=== PATIENT | female | born 1970 | race Caucasian/White ===

== ENCOUNTER 2017-05-11 17:02 | Emergency (ER) | payer SELFPAY ==
[2017-05-11] MEDS ORDERED: Ibuprofen TAB* 600 MG PO ONE (17:17)
[2017-05-11] MEDS ORDERED: Carisoprodol TAB* 350 MG PO ONE (17:33)
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
[2017-05-11 18:46] VITALS: BP 122/82
== END 2017-05-11 18:46 | disposition home or self-care (01) ==
LOC: ED 17:02
DX: S09.90XA Unspecified injury of head, initial encounter (principal); M54.2 Cervicalgia; M51.35 Other intervertebral disc degeneration, thoracolumbar region; V49.9XXA Car occupant (driver) (passenger) injured in unspecified traffic accident, initial encounter; Y93.9 Activity, unspecified; Y92.9 Unspecified place or not applicable
CPT/HCPCS: 70450; 72125; 99282; A9270-GY

== ENCOUNTER 2017-12-23 09:47 | Emergency (ER) | payer BC, OTHER ==
--- NOTE | 2017-12-23 10:27 | ED ---
Throat Pain/Nasal Congestion - HPI Summary HPI Summary: This is scribe Henrique Peraltain documenting for attending Dr. Julio Borges MD. A 47 y/o female presents to ED c/o foreign body substance stuck in her throat. Currently the patient is not in any pain distress, however, she noted that when she drinks seltzer water she feels pain temporarily reaching 3/10 in severity. She can swallow (drink water), however, believes she feels a foreign substance in her esophagus. According to the patient, she inhaled chicken enchilada last night. Due to not chewing the substance, a piece of the substance became stuck in her esophagus. She noted that the pain is apparent when she is drinking water as she has to push the water to go down. The patient emphasized that she can swallow and the pain is not constant ("hurts really bad when I drink"). The pain subsides when the water goes down. She took Tums earlier, as she initially thought it was ingestion, but it did not alleviate the pain. It was noted that both her parents and brother had similar issues. The patient would like to go to [facility] for an endoscopy, if needed. In the ED room, she was able to drink water without choking, however, has some dysphasia now. - History of Current Complaint Chief Complaint: EDForeignBodyEsophag Time Seen by Provider: 12/23/17 10:17 Hx Obtained From: Patient Onset/Duration: Sudden Onset, Still Present - Thinks a foreign substance is in esophagus. Cough: None - Allergies/Home Medications Allergies/Adverse Reactions: Allergies Allergy/AdvReac Type Severity Reaction Status Date / Time No Known Allergies Allergy Verified 12/23/17 09:51 Home Medications: Home Medications Singulair 10 MG TAB* 10 mg PO DAILY 12/23/17 [History Confirmed 12/23/17] PMH/Surg Hx/FS Hx/Imm Hx Endocrine/Hematology History: Denies: Hx Diabetes Cardiovascular History: Denies: Hx Hypertension, Hx Pacemaker/ICD, Other Cardiovascular Problems/ Disorders Respiratory History: Reports: Hx Asthma Denies: Other Respiratory Problems/Disorders GI History: Denies: Other GI Disorders History: Reports: Hx Kidney Stones - STILL HAS STONE 2 YRS Denies: Hx Renal Disease, Other Problems/Disorders Musculoskeletal History: Reports: Other Musculoskeletal History - ? HERNITATED DISCS Sensory History: Reports: Hx Cataracts, Hx Contacts or Glasses - WILL WEAR GLASSES DAY OF SURGERY Denies: Hx Hearing Aid Opthamlomology History: Reports: Hx Cataracts, Hx Contacts or Glasses - WILL WEAR GLASSES DAY OF SURGERY Neurological History: Denies: Other Neuro Impairments/Disorders Psychiatric History: Reports: Hx Anxiety - ON MEDS Denies: Hx Panic Disorder - Cancer History Cancer Type, Location and Year: BREAST Hx Chemotherapy: Yes Hx Radiation Therapy: No - Surgical History Surgery Procedure, Year, and Place: GABRIELLA MASTECTOMY- 04/2008, [facility]. TUBAL LIGATION 2011, [facility] [place]. BREAST REPLACE IMPLANTS 08/2012. 09/2013 FAT TRANSFER [facility] [place] Hx Anesthesia Reactions: No Infectious Disease History: No Infectious Disease History: Denies: Traveled Outside the [place] in Last 30 Days - Family History Known Family History: Positive: Cardiac Disease - maternal grandparents, Hypertension - mother, Diabetes - father, Other - Breast cancer (maternal aunts) - Social History Alcohol Use: Weekly Alcohol Amount: 2-3 DRINKS/WEEK Substance Use Type: Reports: None Smoking Status (MU): Never Smoked Tobacco Have You Smoked in the Last Year: No Review of Systems Negative: Fever Positive: Other - POSITIVE: Pain in esophagus upon swallowing. All Other Systems Reviewed And Are Negative: Yes Physical Exam - Summary Physical Exam Summary: VITAL SIGNS: Reviewed. GENERAL: Patient is a well-developed and nourished female who is lying comfortable in the stretcher. Patient is not in any acute respiratory distress. HEAD AND FACE: No signs of trauma. No ecchymosis, hematomas or skull depressions. No sinus tenderness. EYES: PERRLA, EOMI x 2, no nystagmus. EARS: Hearing grossly intact. Ear canals and tympanic membranes are within normal limits. MOUTH: Oropharynx within normal limits. NECK: Supple, trachea is midline, no adenopathy, no JVD, no carotid bruit, no c- spine tenderness, neck with full ROM. CHEST: Symmetric, no tenderness at palpation LUNGS: Clear to auscultation bilaterally. No wheezing or crackles. CVS: Regular rate and rhythm, S1 and S2 present, no murmurs or gallops appreciated. ABDOMEN: Soft, non-tender. No signs of distention. No rebound no guarding, and no masses palpated. Bowel sounds are normal. EXTREMITIES: FROM in all major joints, no edema, no cyanosis or clubbing. NEURO: Alert and oriented x 3. No acute neurological deficits. Speech is normal and follows commands. SKIN: Dry and warm Triage Information Reviewed: Yes Vital Signs On Initial Exam: Initial Vitals Temp Pulse Resp BP Pulse Ox 97.4 F 67 16 137/81 100 12/23/17 09:48 12/23/17 09:48 12/23/17 09:48 12/23/17 09:48 12/23/17 09:48 Vital Signs Reviewed: Yes Diagnostics - Vital Signs Vital Signs Temp Pulse Resp BP Pulse Ox 12/23/17 09:48 97.4 F 67 16 137/81 100 - Laboratory Lab Statement: Any lab studies that have been ordered have been reviewed, and results considered in the medical decision making process. Re-Evaluation - Re-Evaluation First Eval Re-Evaluation Time: 10:50 Comment: Patient is feeling much better. No more throat pain. EENT Course/Dx - Course Assessment/Plan: She took some Zantac and the symptoms do not improve. This morning when she woke up she developed this painful swallowing but she was able to bring liquids down. However every time that she drinks something she develops the pain. The patient is not drooling, she is not vomiting, she is able to drink liquids down history. In the ER course the patient was given water and she was able to drink with no difficulty however she developed dysphasia. Therefore the patient was given viscous lidocaine and his symptoms significantly improved. She reports that the pain has significantly decreased. Therefore believe that the patient doesnt have any significant obstruction or foreign body at this point however appropriate she has a lot of irritation therefore she had to dysphasia. I offered the patient to be transferred to [facility] for GI consult however the patient is. Better and she prefers the referral to a GI doctor for Monday. The patient is comfortable, she is not really she is able to drink fluids therefore the patient will be discharged home with follow-up with GI. Patient is hemodynamically stable and she is alert and oriented 3. She was given instructions if she develops any other worsening symptoms she should return immediately to the emergency department for further workup and management. The patient understands and agrees. - Diagnoses Provider Diagnoses: Dysphasia Discharge - Sign-Out/Discharge Documenting (check all that apply): Patient Departure - DISCHARGE - Discharge Plan Condition: Stable Disposition: HOME Prescriptions: Lidocaine 2% VISCOUS* [Xylocaine 2% Viscous*] 5 ml SWISH SPIT Q4H PRN #2 btl PRN Reason: Pain Patient Education Materials: Foreign Body in Pharynx (ED) Referrals: Alexandra Flynn MD [Primary Care Provider] - 1 Week Keegan Smiley MD [Medical Doctor] - 3 Days Additional Instructions: FOLLOW UP WITH YOUR PRIMARY CARE PROVIDER WITHIN ONE WEEK FOR HIGH BLOOD PRESSURE NOTED TODAY. RETURN TO THE ED FOR ANY WORSENING OR NEW SYMPTOMS.
[2017-12-23] MEDS ORDERED: Al Hydrox/Mg Hydrox/Simet LIQ* 30 ML UDC PO ONE (10:29)
[2017-12-23] MEDS ORDERED: Lidocaine 2% VISCOUS* 15 ML UDC PO ONE (10:29)
[2017-12-23 11:21] VITALS: BP 131/92
== END 2017-12-23 11:20 | disposition home or self-care (01) ==
LOC: ED 09:47
DX: R47.02 Dysphasia (principal); F41.9 Anxiety disorder, unspecified; Z85.3 Personal history of malignant neoplasm of breast
CPT/HCPCS: 99283; A9270-GY

== ENCOUNTER 2018-08-21 10:38 | Emergency (ER) | payer BC ==
--- NOTE | 2018-08-21 11:02 | ED ---
Abdominal Pain/Female - HPI Summary HPI Summary: This pt is a 47 y/o female presenting to [facility] c/o left sided abd pain x1 week. Pt reports for the last 3 days her abd pain has been worsening. She states that this morning she had streaks of blood in her stool. Pt also note having nausea and one episode of diarrhea. Denies fever, vomiting, vaginal bleeding. She has chronic constipation. FHx of mother and aunt with diverticulitis PMHx includes breast CA (10 years ago), asthma, and kidney stone on the left. - History of Current Complaint Chief Complaint: EDAbdPain Stated Complaint: ABD PAIN/BLOOD IN STOOL PER PT Time Seen by Provider: 08/21/18 10:54 Hx Obtained From: Patient Onset/Duration: Lasting Days, Still Present, Worse Since - 3 days ago Timing: Hours Severity Currently: Moderate Pain Intensity: 4 Pain Scale Used: 0-10 Numeric Location: Other - left sided abd Radiates: No Aggravating Factor(s): Food Alleviating Factor(s): Nothing Associated Signs and Symptoms: Positive: Constipation - chronic, Blood in Stool , Nausea, Diarrhea - one episode. Negative: Fever, Vaginal Bleeding, Vomiting Allergies/Adverse Reactions: Allergies Allergy/AdvReac Type Severity Reaction Status Date / Time No Known Allergies Allergy Verified 08/21/18 10:46 Home Medications: Home Medications Albuterol Sulfate [Proventil Hfa] 6.7 gm INH DAILY 08/21/18 [History Confirmed 08/21/18] Aspirin TAB* [Aspirin 325 MG TAB*] 325 mg PO EVERY OTHER DAY 08/21/18 [History Confirmed 08/21/18] LORazepam TAB(*) [Ativan 0.5 MG TAB (*)] 0.5 mg PO DAILY PRN 08/21/18 [History Confirmed 08/21/18] PMH/Surg Hx/FS Hx/Imm Hx Endocrine/Hematology History: Denies: Hx Diabetes Cardiovascular History: Denies: Hx Hypertension, Hx Pacemaker/ICD, Other Cardiovascular Problems/ Disorders Respiratory History: Reports: Hx Asthma Denies: Other Respiratory Problems/Disorders GI History: Denies: Other GI Disorders History: Reports: Hx Kidney Stones - STILL HAS STONE 2 YRS Denies: Hx Renal Disease, Other Problems/Disorders Musculoskeletal History: Reports: Other Musculoskeletal History - ? HERNITATED DISCS Sensory History: Reports: Hx Cataracts, Hx Contacts or Glasses - WILL WEAR GLASSES DAY OF SURGERY Denies: Hx Hearing Aid Opthamlomology History: Reports: Hx Cataracts, Hx Contacts or Glasses - WILL WEAR GLASSES DAY OF SURGERY Neurological History: Denies: Other Neuro Impairments/Disorders Psychiatric History: Reports: Hx Anxiety - ON MEDS Denies: Hx Panic Disorder - Cancer History Cancer Type, Location and Year: BREAST Hx Chemotherapy: Yes Hx Radiation Therapy: No - Surgical History Surgery Procedure, Year, and Place: GABRIELLA MASTECTOMY- 04/2008, [facility]. TUBAL LIGATION 2011, [facility] [place]. BREAST IMPLANTS 08/2012- [facility]. 09/2013 FAT TRANSFER [facility] [place] Hx Anesthesia Reactions: No Infectious Disease History: No Infectious Disease History: Denies: Traveled Outside the [place] in Last 30 Days - Family History Known Family History: Positive: Cardiac Disease - maternal grandparents, Hypertension - mother, Diabetes - father, Other - Breast cancer (maternal aunts) - Social History Alcohol Use: Weekly Alcohol Amount: 2-3 DRINKS/WEEK Substance Use Type: Reports: None Smoking Status (MU): Never Smoked Tobacco Have You Smoked in the Last Year: No Review of Systems Negative: Fever Gastrointestinal: Other - POS: blood in stool, chronic constipation Positive: Abdominal Pain, Diarrhea - one episode, Nausea. Negative: Vomiting Negative: other - NEG: vaginal bleeding All Other Systems Reviewed And Are Negative: Yes Physical Exam - Summary Physical Exam Summary: Appearance: Well appearing, no pain distress Skin: warm, dry, reflects adequate perfusion Head/face: normal Eyes: EOMI, JOSE ENT: normal Neck: supple, non-tender Respiratory: CTA, breath sounds present Cardiovascular: RRR, pulses symmetrical Abdomen: tender in the LLQ, soft Musculoskeletal: normal, strength/ROM intact Neuro: normal, sensory motor intact, A&Ox3 Triage Information Reviewed: Yes Vital Signs On Initial Exam: Initial Vitals Temp Pulse Resp BP Pulse Ox 98.7 F 107 20 151/112 100 08/21/18 10:43 08/21/18 10:43 08/21/18 10:43 08/21/18 10:43 08/21/18 10:43 Vital Signs Reviewed: Yes Diagnostics - Vital Signs Vital Signs Temp Pulse Resp BP Pulse Ox 08/21/18 10:43 98.7 F 107 20 151/112 100 - Laboratory Result Diagrams: 08/21/18 11:23 08/21/18 11:23 Lab Statement: Any lab studies that have been ordered have been reviewed, and results considered in the medical decision making process. - CT Abdomen/Pelvis CT CT Interpretation Completed By: Radiologist Summary of CT Findings: IMPRESSION: #. Short segment circumferential mural thickening of the proximal sigmoid colon. Given absence of a specific inflamed diverticula the appearance is concerning for potential focal colitis or colonic neoplasm. Correlate with clinical assessment and consider colonoscopy for further evaluation. #. Negative for lymphadenopathy. Dr. Fabian has reviewed this report. Re-Evaluation - Re-Evaluation First Eval Re-Evaluation Time: 14:38 Comment: I updated the pt and reviewed the lab and CT results with pt. We are waiting for GI to call back. Abdominal Pain Fem Course/Dx - Course Course Of Treatment: Pt is a 47 y/o female who presents with left sided abd pain x1 week, worsening over the last 3 days. Associated symptoms of nausea, one episode of diarrhea, and this morning she had streaks of blood in her stool. Blood work, urinalysis, CT were obtained. Abd/Pel CT shows #. Short segment circumferential mural thickening of the proximal sigmoid colon. Given absence of a specific inflamed diverticula the appearance is concerning for potential focal colitis or colonic neoplasm. Correlate with clinical assessment and consider colonoscopy for further evaluation. #. Negative for lymphadenopathy. In the ED course the pt declines any pain medications. Discussed with DRE Perales, who reports he cannot do the scope tomorrow. Dr. Smiley recommends discharging pt with antibiotics and follow up with Dr. Bhatti tomorrow. Pt will be discharged home with follow up from Dr. Bhatti. Pt given Rx Ciprofloxacin and Flagyl. She was instructed to return to the ED for any new or worsening symptoms. Discussed case with Dr. Flynn, pt's PCP, and she agrees with plan. Dx: colitis, rule out malignancy. - Diagnoses Differential Diagnosis: Positive: Constipation, Diverticulitis, Ovarian Cyst, Pancreatitis, Urinary Tract Infection Provider Diagnoses: Colitis - Provider Notifications Discussed Care Of Patient With: Keegan Smiley - GI Time Discussed With Above Provider: 15:19 Instructed by Provider To: Other - Discussed with DRE Perales, who reports he cannot do scope tomorrow. Dr. Smiley recommends discharge pt with antibiotics and follow up with Dr. Bhatti tomorrow. [15:54] Discussed with Dr. Flynn, PCP, and she agrees with plan. Discharge - Sign-Out/Discharge Documenting (check all that apply): Patient Departure - Discharge home Patient Received Moderate/Deep Sedation with Procedure: No - Discharge Plan Condition: Stable Disposition: HOME Prescriptions: Ciprofloxacin TAB* [Cipro 500 MG TAB*] 500 mg PO BID #20 tab metroNIDAZOLE [Flagyl 500 MG TAB] 500 mg PO TID #30 tab Patient Education Materials: Colitis (ED) Referrals: Alexandra Flynn MD [Primary Care Provider] - Ramone Bhatti MD [Medical Doctor] - Additional Instructions: Please follow up with Dr. Bhatti, tax manager. RETURN TO THE ED FOR ANY WORSENING OR NEW SYMPTOMS. - Billing Disposition and Condition Condition: STABLE Disposition: Home - Attestation Statements Document Initiated by Caren: Yes Documenting Scribe: Aliya Bailey Provider For Whom Caren is Documenting (Include Credential): Bandar Fabian MD Scribe Attestation: Aliya Escobar, scribed for Bandar Fabian MD on 08/21/18 at 1605. Scribe Documentation Reviewed: Yes Provider Attestation: The documentation as recorded by the Aliya ybarra accurately reflects the service I personally performed and the decisions made by Bandar gutierrez MD Status of Scribe Document: Viewed
[2018-08-21] MEDS ORDERED: NS 0.9% 1000 ML** 1,000 ML IV ONE (11:11)
[2018-08-21 11:41] LABS: Urine Appearance Clear; Urine Bacteria Absent (Absent); Urine Bilirubin Negative (Negative); Urine Blood 1+ (Negative); Urine Color Straw; Urine Glucose Negative (Negative); Urine Ketones Negative (Negative); Urine Nitrite Negative (Negative); Urine Protein Negative (Negative); Urine Red Blood Cell Trace(0-2/hpf) (Absent); Urine Specific Gravity 1.005 (1.010-1.030); Urine Urobilinogen Negative (Negative); Urine White Blood Cell Absent (Absent)
[2018-08-21 11:42] LABS: Activated Partial Thrombo Time 30.1 seconds (26.0-36.3); INR 1.02 (0.77-1.02)
[2018-08-21 11:52] LABS: Albumin 4.2 g/dL (3.2-5.2); Albumin/Globulin Ratio 1.5 (1-3); BUN/Creatinine Ratio 13.6 (8-20); C Reactive Protein 48.45 mg/L (<8.01); Calcium 9.4 mg/dL (8.6-10.3); EGFR African American 92.5 (>60); EGFR Non-African American 76.5 (>60); Globulin 2.8 g/dL (2-4); Potassium 3.6 mmol/L (3.5-5.0); Total Bilirubin 0.5 mg/dL (0.2-1.0)
[2018-08-21 11:57] LABS: HCG Pregnancy 1.08 mIU/mL
[2018-08-21 12:11] LABS: ABS Basophils 0 10^3/ul (0-0.2); ABS Eosinophils 0 10^3/ul (0-0.6); ABS Lymphocytes 1.2 10^3/ul (1.0-4.8); ABS Monocytes 0.6 10^3/ul (0-0.8); ABS Neutrophils 7.5 10^3/ul (1.5-7.7); ABS Nucleated RBC 0 10^3/ul; Eosinophil % 0.3 %; Hematocrit 38 % (33-41); Hemoglobin 13.1 g/dL (12.0-16.0); Lymphocyte % 12.6 %; Mean Corpuscular HGB Conc 34 g/dL (31-36); Mean Corpuscular Hemoglobin 31 pg (27-31); Mean Corpuscular Volume 90 fL (80-97); Mean Platelet Volume 8.7 fL (7.4-10.4); Nucleated Red Blood Cells % 0; Platelet Count 264 10^3/uL (150-450); Red Blood Count 4.28 10^6 /uL (3.70-4.87); Red Cell Distribution Width 14 % (10.5-15); White Blood Count 9.3 10^3/uL (3.5-10.8)
[2018-08-21] MEDS ORDERED: Iohexol 300* (CONTRAST) 10 ML SDV IV ONE (12:59)
[2018-08-21] MEDS ORDERED: Ciprofloxacin TAB* 500 MG PO ONE (15:24)
[2018-08-21] MEDS ORDERED: metroNIDAZOLE TAB* 250 MG PO ONE (15:24)
[2018-08-21 16:11] VITALS: BP 122/96
== END 2018-08-21 16:09 | disposition home or self-care (01) ==
LOC: ED 10:38
DX: K52.9 Noninfective gastroenteritis and colitis, unspecified (principal); K59.00 Constipation, unspecified; K92.1 Melena; J45.909 Unspecified asthma, uncomplicated; Z87.442 Personal history of urinary calculi; F41.9 Anxiety disorder, unspecified; Z85.3 Personal history of malignant neoplasm of breast
CPT/HCPCS: 36415; 74177; 80053; 81003; 81015; 83690; 84702; 85025; 85610; 85730; 86140; 96360; 99283; A9270-GY; Q9967

== ENCOUNTER 2020-01-22 11:53 | Observation (INO) ==
[2020-01-22] MEDS ORDERED: NS 0.9% 1000 ml BAG 1,000 ML IV ONE ×2 (12:41→15:10)
[2020-01-22] MEDS ORDERED: Ondansetron 4 mg VIAL 2 MG/ML 2 ml VIAL IV ONE (12:49)
[2020-01-22] MEDS ORDERED: Morphine 4 MG/ML VIAL (1 ml) IV ONE (12:49)
[2020-01-22 13:22] LABS: ABS Basophils 0.1 10^3/ul (0-0.2); ABS Eosinophils 0.1 10^3/ul (0-0.6); ABS Lymphocytes 1.1 10^3/ul (1.0-4.8); ABS Monocytes 0.9 10^3/ul (0-0.8); ABS Neutrophils 12.7 10^3/ul (1.5-7.7); Eosinophil % 0.6 %; Hematocrit 39 % (35-47); Hemoglobin 13.5 g/dL (12.0-16.0); Lymphocyte % 7.4 %; Mean Corpuscular HGB Conc 34 g/dL (31-36); Mean Corpuscular Hemoglobin 31 pg (27-31); Mean Corpuscular Volume 91 fL (80-97); Mean Platelet Volume 8.2 fL (7.4-10.4); Platelet Count 310 10^3/uL (150-450); Red Blood Count 4.33 10^6 /uL (3.70-4.87); Red Cell Distribution Width 13 % (10-15); White Blood Count 14.8 10^3/uL (3.5-10.8)
[2020-01-22 13:39] LABS: ALT 17 U/L (7-52); AST 16 U/L (13-39); Albumin 4.5 g/dL (3.2-5.2); Albumin/Globulin Ratio 1.4 (1-3); Alkaline Phosphatase 41 U/L (34-104); Anion Gap 8 mmol/L (2-11); BUN/Creatinine Ratio 10.6 (8-20); Blood Urea Nitrogen 9 mg/dL (6-24); C Reactive Protein 80.48 mg/L (<8.01); CO2 Carbon Dioxide 27 mmol/L (22-32); Calcium 9.9 mg/dL (8.6-10.3); Chloride 102 mmol/L (101-111); EGFR African American 86.7 (>60); EGFR Non-African American 71.7 (>60); Globulin 3.3 g/dL (2-4); Glucose 89 mg/dL (70-100); Potassium 3.9 mmol/L (3.5-5.0); Sodium 137 mmol/L (135-145); Total Protein 7.8 g/dL (6.4-8.9)
[2020-01-22] MEDS ORDERED: Iohexol 300 (CONTRAST) 10 ML SDV IV ONE (13:43)
[2020-01-22 13:45] LABS: HCG Pregnancy < 0.60 mIU/mL
[2020-01-22 14:36] LABS: Erythrocyte Sed Rate 48 mm/Hr (0-19)
[2020-01-22] MEDS ORDERED: Piperacillin/Tazobac ADVAN 3.375 GM in NS 0.9% 100 ml BAG 100 ML IVPB ONE ×2 (15:10→23:30)
[2020-01-22] MEDS ORDERED: Fluticasone NASAL SPRAY 50MCG 16 gm SPRAY BTL BOTH NARES PRN (17:09)
[2020-01-22] MEDS ORDERED: Ondansetron 4 mg VIAL 2 MG/ML 2 ml VIAL IV PRN (17:18)
[2020-01-22] MEDS ORDERED: Morphine 2 MG/ML SYRINGE IV PRN (17:24)
[2020-01-22] MEDS ORDERED: Albuterol HFA INHALER 8 gm MDI INH PRN (17:48)
[2020-01-22] MEDS ORDERED: Mometasone 220 MCG MDI INH SCH (18:00)
[2020-01-22] MEDS ORDERED: Zosyn per Pharmacy NOTE FOLLOW UP SCH (18:00)
[2020-01-22] MEDS ORDERED: Morphine 4 MG/ML VIAL (1 ml) IV SCH (18:00)
[2020-01-22] MEDS: ZOSYN 3.375 GM Q8H per EXTENDED INFUSION IV SCH (19:41)
[2020-01-22] MEDS: Senna TAB 8.6 mg TAB PO PRN (20:39)
[2020-01-22] MEDS: oxyCODONE/Acetamin 5/325 mg TAB PO PRN (20:39)
[2020-01-23] MEDS: ZOSYN 3.375 GM Q8H per EXTENDED INFUSION IV SCH ×3 (03:39→20:12)
[2020-01-23 06:22] LABS: ABS Basophils 0.1 10^3/ul (0-0.2); ABS Eosinophils 0.2 10^3/ul (0-0.6); ABS Monocytes 0.4 10^3/ul (0-0.8); Eosinophil % 2.4 %; Hematocrit 31 % (35-47); Hemoglobin 10.8 g/dL (12.0-16.0); Lymphocyte % 13.4 %; Mean Corpuscular HGB Conc 35 g/dL (31-36); Mean Corpuscular Hemoglobin 32 pg (27-31); Mean Corpuscular Volume 91 fL (80-97); Mean Platelet Volume 8.2 fL (7.4-10.4); Platelet Count 212 10^3/uL (150-450); Red Blood Count 3.36 10^6 /uL (3.70-4.87); Red Cell Distribution Width 14 % (10-15); White Blood Count 7.7 10^3/uL (3.5-10.8)
[2020-01-23 06:34] LABS: BUN/Creatinine Ratio 12.9 (8-20); Calcium 8.4 mg/dL (8.6-10.3); EGFR African American 86.7 (>60); EGFR Non-African American 71.7 (>60); Potassium 3.9 mmol/L (3.5-5.0)
[2020-01-23] MEDS: oxyCODONE/Acetamin 5/325 mg TAB PO PRN (10:51)
[2020-01-23] MEDS: Senna TAB 8.6 mg TAB PO PRN (15:23)
[2020-01-23] MEDS ORDERED: Mometasone 220 MCG MDI INH SCH (21:00)
[2020-01-24] MEDS: ZOSYN 3.375 GM Q8H per EXTENDED INFUSION IV SCH (03:27)
[2020-01-24 06:43] LABS: ABS Basophils 0.1 10^3/ul (0-0.2); ABS Eosinophils 0.2 10^3/ul (0-0.6); ABS Lymphocytes 1.1 10^3/ul (1.0-4.8); ABS Monocytes 0.4 10^3/ul (0-0.8); ABS Neutrophils 3.9 10^3/ul (1.5-7.7); Eosinophil % 3.8 %; Hematocrit 31 % (35-47); Hemoglobin 11.2 g/dL (12.0-16.0); Lymphocyte % 19.2 %; Mean Corpuscular HGB Conc 36 g/dL (31-36); Mean Corpuscular Hemoglobin 32 pg (27-31); Mean Corpuscular Volume 90 fL (80-97); Mean Platelet Volume 8.2 fL (7.4-10.4); Nucleated Red Blood Cells % 0.1; Platelet Count 235 10^3/uL (150-450); Red Blood Count 3.48 10^6 /uL (3.70-4.87); Red Cell Distribution Width 14 % (10-15); White Blood Count 5.7 10^3/uL (3.5-10.8)
[2020-01-24 07:03] LABS: BUN/Creatinine Ratio 6.5 (8-20); Calcium 8.7 mg/dL (8.6-10.3); EGFR African American 79.2 (>60); EGFR Non-African American 65.4 (>60); Potassium 3.8 mmol/L (3.5-5.0)
[2020-01-24 07:44] VITALS: BP 107/61
== END 2020-01-24 09:15 | disposition home or self-care (01) ==
LOC: MED 11:53 → ED 11:53 → MED 18:22
PROVIDERS: ADMIT Internal Medicine; ATTEND Internal Medicine

== ENCOUNTER 2023-05-12 16:38 | Inpatient (IN) ==
[2023-05-12] MEDS ORDERED: Ondansetron 4 mg VIAL 2 MG/ML 2 ml VIAL IV ONE (17:28)
[2023-05-12] MEDS ORDERED: NS 0.9% 1000 ml BAG 1,000 ML IV ONE (17:28)
[2023-05-12] MEDS ORDERED: Piperacillin/Tazobac 3.375 BAG 3.375 GM/100 ML BAG IV ONE (17:29)
[2023-05-12] MEDS ORDERED: Iohexol 350 (CONTRAST) 500 ML MDV IV ONE (17:39)
[2023-05-12] MEDS ORDERED: Lactated Ringers 1000 ml BAG 1,000 ML IV ONE (17:58)
[2023-05-12 18:05] LABS: Hematocrit 40.9 % (35-45); Hemoglobin 13.5 g/dL (11.5-14.3); Mean Corpuscular Hemoglobin 30.5 pg (27-33); Mean Corpuscular Volume 92.3 fL (80-97); Mean Platelet Volume 8.3 fL (7.5-11.2); Platelet Count 320 10^3/uL (150-450); Red Blood Count 4.43 10^6/uL (3.63-4.92); Red Cell Distribution Width 13.6 % (12-17); White Blood Count 21.3 10^3/uL (3.8-11.8)
[2023-05-12 18:25] LABS: ALT 17 U/L (7-52); AST 18 U/L (13-39); Albumin 4.2 g/dL (3.2-5.2); Albumin/Globulin Ratio 1.1 (1-3); Alkaline Phosphatase 64 U/L (35-149); Anion Gap 8 mmol/L (2-16); Blood Urea Nitrogen 10 mg/dL (6-24); CO2 Carbon Dioxide 27 mmol/L (22-32); Calcium 9.8 mg/dL (8.6-10.3); Chloride 98 mmol/L (101-111); Globulin 3.7 g/dL (2-4); Glucose 98 mg/dL (70-100); Lipase < 10 U/L (11.0-82.0); Magnesium 1.8 mg/dL (1.9-2.7); Phosphorus 2.4 mg/dL (2.5-5.0); Potassium 3.6 mmol/L (3.5-5.0); Sodium 133 mmol/L (135-145); Total Bilirubin 0.5 mg/dL (0.2-1.0); Total Protein 7.9 g/dL (6.4-8.9); eGFR CKD-EPI 89.7 (>60)
[2023-05-12 18:37] LABS: ABS Basophils 0.1 10^3/uL (0.0-0.1); ABS Eosinophils 0.1 10^3/uL (0.0-0.5); ABS Lymphocytes 0.6 10^3/uL (1.0-4.8); ABS Monocytes 0.5 10^3/uL (0.0-0.9); ABS Neutrophils 20.1 10^3/uL (1.5-7.6); ABS Nucleated RBC 0.01 10^3/ul; Eosinophil % 0.3 %; Lymphocyte % 2.7 %
[2023-05-12] MEDS ORDERED: Enoxaparin 40 MG/0.4 ML SYR SUBCUT SCH (20:00)
[2023-05-12] MEDS: NS 0.9% 1000 ml BAG 1,000 ML IV SCH (20:55)
[2023-05-12] MEDS ORDERED: metroNIDAZOLE IV 500 MG/100ML 500 MG/100 ML BAG IVPB SCH (22:00)
[2023-05-12] MEDS ORDERED: Cefepime 1 GM in Dextrose 1 GM/50 ML BAG IV SCH (23:00)
[2023-05-12] MEDS ORDERED: oxyCODONE/Acetamin 5/325 mg TAB PO PRN (23:32)
[2023-05-13] MEDS: Ondansetron 4 mg VIAL 2 MG/ML 2 ml VIAL IV PRN ×3 (02:08→17:51)
[2023-05-13] MEDS: oxyCODONE/Acetamin 5/325 mg TAB PO PRN ×3 (03:08→17:51)
[2023-05-13] MEDS: fentaNYL 100 mcg/2 ml 50 MCG/ML VIAL IV SLOW PU PRN ×6 (03:16→20:10)
[2023-05-13] MEDS: NS 0.9% 1000 ml BAG 1,000 ML IV SCH ×2 (06:05→21:23)
[2023-05-13 06:06] LABS: ABS Eosinophils 0.1 10^3/uL (0.0-0.5); ABS Lymphocytes 0.6 10^3/uL (1.0-4.8); ABS Monocytes 0.5 10^3/uL (0.0-0.9); ABS Neutrophils 12.6 10^3/uL (1.5-7.6); Eosinophil % 0.7 %; Hematocrit 30.7 % (35-45); Hemoglobin 10.4 g/dL (11.5-14.3); Lymphocyte % 4.5 %; Mean Corpuscular Hemoglobin 31.2 pg (27-33); Mean Corpuscular Volume 91.6 fL (80-97); Mean Platelet Volume 8.2 fL (7.5-11.2); Platelet Count 265 10^3/uL (150-450); Red Blood Count 3.35 10^6/uL (3.63-4.92); Red Cell Distribution Width 13.2 % (12-17); White Blood Count 13.8 10^3/uL (3.8-11.8)
[2023-05-13] MEDS: metroNIDAZOLE IV 500 MG/100ML 500 MG/100 ML BAG IVPB SCH ×3 (06:12→21:22)
[2023-05-13 06:28] LABS: Activated Partial Thrombo Time 32.9 seconds (26.0-38.0); Calcium 8.1 mg/dL (8.6-10.3); Creatinine, Serum 0.73 mg/dL (0.51-0.95); INR 1.24 (0.83-1.13); Magnesium 1.7 mg/dL (1.9-2.7); Phosphorus 2.9 mg/dL (2.5-5.0); Potassium 3.4 mmol/L (3.5-5.0); eGFR CKD-EPI 100.1 (>60)
[2023-05-13] MEDS ORDERED: Magnesium Sulfate 2 gm BAG 2 GM/50 ML BAG IVPB ONE (07:11)
[2023-05-13] MEDS ORDERED: KCL 20 MEQ/100 ML IVPREMIX 20 MEQ/100 ML BAG IV ONE (07:58)
[2023-05-13] MEDS ORDERED: CALCIUM GLUCONATE 1GM/50ML NS 1 GM/50 ML BAG IV ONE (08:26)
[2023-05-13] MEDS ORDERED: Albuterol HFA INHALER 8 gm MDI INH PRN (12:10)
[2023-05-13] MEDS: Cefepime 1 GM in Dextrose 1 GM/50 ML BAG IV SCH ×2 (12:34→23:04)
[2023-05-13] MEDS: Fluticasone NASAL SPRAY 50MCG 16 gm SPRAY BTL INTRANASAL SCH ×2 (13:42→23:31)
[2023-05-13] MEDS: HYDROmorphone 1 MG/1 ML SYRINGE IV PRN ×2 (13:56→21:19)
[2023-05-13] MEDS ORDERED: Mometasone 220 MCG MDI INH SCH (21:00)
[2023-05-13] MEDS: Heparin 5000 UNITS/ML 1 mL VIAL SUBCUT SCH (21:22)
[2023-05-14] MEDS: fentaNYL 100 mcg/2 ml 50 MCG/ML VIAL IV SLOW PU PRN ×5 (00:01→14:26)
[2023-05-14] MEDS: oxyCODONE/Acetamin 5/325 mg TAB PO PRN ×4 (00:01→21:06)
[2023-05-14] MEDS: Ondansetron 4 mg VIAL 2 MG/ML 2 ml VIAL IV PRN ×2 (00:02→06:20)
[2023-05-14] MEDS: metroNIDAZOLE IV 500 MG/100ML 500 MG/100 ML BAG IVPB SCH ×3 (05:19→21:08)
[2023-05-14] MEDS: HYDROmorphone 1 MG/1 ML SYRINGE IV PRN ×2 (07:25→12:30)
[2023-05-14 07:51] LABS: ABS Eosinophils 0.3 10^3/uL (0.0-0.5); ABS Lymphocytes 0.6 10^3/uL (1.0-4.8); ABS Monocytes 0.5 10^3/uL (0.0-0.9); Eosinophil % 2.8 %; Hematocrit 33.8 % (35-45); Hemoglobin 11.3 g/dL (11.5-14.3); Lymphocyte % 6.4 %; Mean Corpuscular Hemoglobin 31.1 pg (27-33); Mean Corpuscular Hgb Conc 33.4 g/dL (31-36); Mean Corpuscular Volume 92.8 fL (80-97); Platelet Count 292 10^3/uL (150-450); Red Blood Count 3.64 10^6/uL (3.63-4.92); Red Cell Distribution Width 13.5 % (12-17); White Blood Count 9.3 10^3/uL (3.8-11.8)
[2023-05-14] MEDS: Mometasone 220 MCG MDI INH SCH (08:08)
[2023-05-14 08:47] LABS: Albumin 3.1 g/dL (3.2-5.2); Albumin/Globulin Ratio 1.2 (1-3); Calcium 8.3 mg/dL (8.6-10.3); Creatinine, Serum 0.65 mg/dL (0.51-0.95); Globulin 2.5 g/dL (2-4); Magnesium 1.7 mg/dL (1.9-2.7); Phosphorus 2.8 mg/dL (2.5-5.0); Potassium 3.6 mmol/L (3.5-5.0); Total Bilirubin 0.3 mg/dL (0.2-1.0); Total Protein 5.6 g/dL (6.4-8.9); eGFR CKD-EPI 107.2 (>60)
[2023-05-14] MEDS: NS 0.9% 1000 ml BAG 1,000 ML IV SCH (08:52)
[2023-05-14] MEDS: Heparin 5000 UNITS/ML 1 mL VIAL SUBCUT SCH ×2 (09:13→21:08)
[2023-05-14] MEDS: Fluticasone NASAL SPRAY 50MCG 16 gm SPRAY BTL INTRANASAL SCH ×2 (09:13→21:06)
[2023-05-14] MEDS: Cefepime 1 GM in Dextrose 1 GM/50 ML BAG IV SCH ×2 (10:46→22:20)
[2023-05-14] MEDS ORDERED: CMCS: Ketorolac 10 mg TAB (NF) PO ONE (13:00)
[2023-05-14] MEDS ORDERED: Magnesium Sulfate 2 gm BAG 2 GM/50 ML BAG IVPB ONE (15:45)
[2023-05-15] MEDS: oxyCODONE/Acetamin 5/325 mg TAB PO PRN ×5 (02:12→22:41)
[2023-05-15] MEDS: Ondansetron 4 mg VIAL 2 MG/ML 2 ml VIAL IV PRN ×4 (02:16→20:08)
[2023-05-15] MEDS: metroNIDAZOLE IV 500 MG/100ML 500 MG/100 ML BAG IVPB SCH ×3 (05:28→22:42)
[2023-05-15] MEDS: HYDROmorphone 1 MG/1 ML SYRINGE IV PRN ×3 (05:41→20:21)
[2023-05-15 06:10] LABS: ABS Eosinophils 0.2 10^3/uL (0.0-0.5); ABS Lymphocytes 0.6 10^3/uL (1.0-4.8); ABS Monocytes 0.5 10^3/uL (0.0-0.9); ABS Neutrophils 5.3 10^3/uL (1.5-7.6); Eosinophil % 3.3 %; Hematocrit 30.7 % (35-45); Hemoglobin 10.7 g/dL (11.5-14.3); Lymphocyte % 8.6 %; Mean Corpuscular Hemoglobin 31.4 pg (27-33); Mean Corpuscular Hgb Conc 34.8 g/dL (31-36); Mean Corpuscular Volume 90.5 fL (80-97); Mean Platelet Volume 7.2 fL (7.5-11.2); Platelet Count 307 10^3/uL (150-450); Red Blood Count 3.39 10^6/uL (3.63-4.92); Red Cell Distribution Width 13.6 % (12-17); White Blood Count 6.6 10^3/uL (3.8-11.8)
[2023-05-15 06:26] LABS: Calcium 8.2 mg/dL (8.6-10.3); Creatinine, Serum 0.66 mg/dL (0.51-0.95); Potassium 3.7 mmol/L (3.5-5.0); eGFR CKD-EPI 106.8 (>60)
[2023-05-15] MEDS: Mometasone 220 MCG MDI INH SCH (07:49)
[2023-05-15] MEDS: Heparin 5000 UNITS/ML 1 mL VIAL SUBCUT SCH ×2 (07:54→20:09)
[2023-05-15] MEDS: Fluticasone NASAL SPRAY 50MCG 16 gm SPRAY BTL INTRANASAL SCH ×2 (09:47→20:10)
[2023-05-15] MEDS: Cefepime 1 GM in Dextrose 1 GM/50 ML BAG IV SCH (11:22)
[2023-05-16] MEDS: Cefepime 1 GM in Dextrose 1 GM/50 ML BAG IV SCH ×3 (00:03→22:04)
[2023-05-16] MEDS: Ondansetron 4 mg VIAL 2 MG/ML 2 ml VIAL IV PRN ×5 (00:11→20:57)
[2023-05-16] MEDS: HYDROmorphone 1 MG/1 ML SYRINGE IV PRN (00:30)
[2023-05-16] MEDS: oxyCODONE/Acetamin 5/325 mg TAB PO PRN ×2 (04:30→08:57)
[2023-05-16] MEDS: metroNIDAZOLE IV 500 MG/100ML 500 MG/100 ML BAG IVPB SCH ×3 (05:40→20:58)
[2023-05-16 06:14] LABS: ABS Eosinophils 0.2 10^3/uL (0.0-0.5); ABS Lymphocytes 0.8 10^3/uL (1.0-4.8); ABS Monocytes 0.5 10^3/uL (0.0-0.9); ABS Neutrophils 4.1 10^3/uL (1.5-7.6); Hematocrit 29.4 % (35-45); Hemoglobin 10.2 g/dL (11.5-14.3); Mean Corpuscular Hemoglobin 31.2 pg (27-33); Mean Corpuscular Hgb Conc 34.7 g/dL (31-36); Mean Corpuscular Volume 89.8 fL (80-97); Mean Platelet Volume 7.2 fL (7.5-11.2); Platelet Count 314 10^3/uL (150-450); Red Blood Count 3.27 10^6/uL (3.63-4.92); Red Cell Distribution Width 13.5 % (12-17); White Blood Count 5.7 10^3/uL (3.8-11.8)
[2023-05-16 06:38] LABS: Potassium 3.5 mmol/L (3.5-5.0)
[2023-05-16 06:39] LABS: Calcium 8.1 mg/dL (8.6-10.3); Creatinine, Serum 0.55 mg/dL (0.51-0.95); eGFR CKD-EPI 111.6 (>60)
[2023-05-16] MEDS: Mometasone 220 MCG MDI INH SCH (07:46)
[2023-05-16] MEDS ORDERED: HYDROmorphone 1 MG/1 ML SYRINGE IV SLOW PU PRN (08:13)
[2023-05-16] MEDS: Heparin 5000 UNITS/ML 1 mL VIAL SUBCUT SCH ×2 (08:58→21:02)
[2023-05-16] MEDS: Fluticasone NASAL SPRAY 50MCG 16 gm SPRAY BTL INTRANASAL SCH ×2 (08:59→21:06)
[2023-05-16] MEDS ORDERED: oxyCODONE/Acetamin 5/325 mg TAB PO PRN (10:38)
[2023-05-16] MEDS ORDERED: HYDROmorphone 0.5 MG/0.5 ML SYRINGE IV SLOW PU PRN (10:38)
[2023-05-16] MEDS: Lactated Ringers 1000 ml BAG 1,000 ML IV SCH ×2 (11:14→22:50)
[2023-05-17] MEDS: metroNIDAZOLE IV 500 MG/100ML 500 MG/100 ML BAG IVPB SCH ×3 (05:57→20:53)
[2023-05-17 07:50] LABS: ABS Eosinophils 0.3 10^3/uL (0.0-0.5); ABS Lymphocytes 1.2 10^3/uL (1.0-4.8); ABS Monocytes 0.4 10^3/uL (0.0-0.9); ABS Nucleated RBC 0.01 10^3/ul; Eosinophil % 4.3 %; Hematocrit 30.9 % (35-45); Hemoglobin 10.6 g/dL (11.5-14.3); Lymphocyte % 17.4 %; Mean Corpuscular Hemoglobin 31.3 pg (27-33); Mean Corpuscular Hgb Conc 34.4 g/dL (31-36); Mean Platelet Volume 7.5 fL (7.5-11.2); Nucleated Red Blood Cells % 0.1 %/100WBC (0.0-0.8); Platelet Count 343 10^3/uL (150-450); Red Cell Distribution Width 13.6 % (12-17)
[2023-05-17 08:16] LABS: Calcium 8.4 mg/dL (8.6-10.3); Creatinine, Serum 0.69 mg/dL (0.51-0.95); Potassium 3.7 mmol/L (3.5-5.0); eGFR CKD-EPI 105.7 (>60)
[2023-05-17] MEDS: Heparin 5000 UNITS/ML 1 mL VIAL SUBCUT SCH ×2 (08:39→20:53)
[2023-05-17] MEDS: Fluticasone NASAL SPRAY 50MCG 16 gm SPRAY BTL INTRANASAL SCH ×2 (08:39→20:54)
[2023-05-17] MEDS: Mometasone 220 MCG MDI INH SCH (08:49)
[2023-05-17] MEDS ORDERED: Glycerin ADULT 2.4 gm SUPP PR ONE (10:13)
[2023-05-17] MEDS: Cefepime 1 GM in Dextrose 1 GM/50 ML BAG IV SCH ×2 (11:11→23:31)
[2023-05-18] MEDS: metroNIDAZOLE IV 500 MG/100ML 500 MG/100 ML BAG IVPB SCH (05:23)
[2023-05-18] MEDS: Mometasone 220 MCG MDI INH SCH (07:30)
[2023-05-18] MEDS: Heparin 5000 UNITS/ML 1 mL VIAL SUBCUT SCH (08:24)
[2023-05-18 11:02] VITALS: BP 143/93
== END 2023-05-18 13:27 | disposition home or self-care (01) | DRG 244 ==
LOC: EDHOLD 16:38 → ED 16:38 → SUATTDRO 18:57 → MED 05-13 01:10 → SUATTDRO 05-14 11:59
PROVIDERS: ADMIT Internal Medicine; ATTEND Hospitalist

== ENCOUNTER 2023-10-02 07:30 | Inpatient (IN) ==
[~2023-10-02 07:30] MED LIST: Ertapenem 1 GM in NS 0.9% 50 ML BAG IVPB SCH
[2023-10-02] MEDS ORDERED: Naloxone 0.4 mg VIAL 0.4 mg/ml 1 ml VIAL IV PRN ×2 (08:51)
[2023-10-02] MEDS ORDERED: fentaNYL 250 mcg/5 ml 50 MCG/ML 5 ml VIAL (250 MCG) ONE (10:21)
[2023-10-02] MEDS ORDERED: Dexamethasone IV 4 MG/ML VIAL 1 ml VIAL ONE (10:21)
[2023-10-02] MEDS ORDERED: Midazolam 2 mg/2 ml VIAL 1 mg/ml 2 ml VIAL (2 mg) ONE (10:21)
[2023-10-02] MEDS ORDERED: Rocuronium 50 mg VIAL 10 mg/ml 5 ml VIAL (50 mg) ONE ×2 (10:21→12:58)
[2023-10-02] MEDS ORDERED: Propofol 10 MG/ML 20 ML BTL ONE (10:21)
[2023-10-02] MEDS ORDERED: Succinylcholine 200 mg VIAL 20 mg/ml 10 ml VIAL (200 mg) ONE (10:21)
[2023-10-02] MEDS ORDERED: Lidocaine 2% PF 5 ML VIAL ONE (10:21)
[2023-10-02] MEDS ORDERED: Ondansetron 4 mg VIAL 2 MG/ML 2 ml VIAL ONE ×2 (10:21→16:45)
[2023-10-02] MEDS: Buffered Lidocaine 1% SYRIN 1 ml INTRADERM ONE (10:38)
[2023-10-02] MEDS ORDERED: Famotidine IV 10 MG/ML 2 ml VIAL (20 mg) ONE (10:47)
[2023-10-02] MEDS ORDERED: Heparin 5000 UNITS/ML 1 mL VIAL ONE (10:47)
[2023-10-02] MEDS ORDERED: Scopolamine 1 mg/72hr PATCH ONE (10:47)
[2023-10-02] MEDS: Lactated Ringers 1000 ml BAG 1,000 ML IV SCH ×2 (11:15→18:26)
[2023-10-02] MEDS: Scopolamine 1 mg/72hr PATCH TRANSDERM ONE (11:17)
[2023-10-02 11:27] LABS: Rapid COVID-19 Molecular Undetected (Undetected)
[2023-10-02] MEDS ORDERED: Bupivacaine 0.25% EPI 200,000 30 ML SDV ONE (11:53)
[2023-10-02] MEDS ORDERED: Sevoflurane BOTTLE ONE ×2 (13:53→13:54)
[2023-10-02] MEDS ORDERED: Albuterol/Ipratropium NEB.SOL (2.5/0.5 MG) 3 ML NEB.SOLN INH PRN (16:35)
[2023-10-02] MEDS ORDERED: fentaNYL 100 mcg/2 ml 50 MCG/ML VIAL ONE (16:38)
[2023-10-02] MEDS ORDERED: Metoclopramide 5 MG/ML VIAL (10 mg) ONE (16:45)
[2023-10-02] MEDS: fentaNYL 100 mcg/2 ml 50 MCG/ML VIAL IV PRN (16:45)
[2023-10-02] MEDS: Ondansetron 4 mg VIAL 2 MG/ML 2 ml VIAL IV PRN (16:46)
[2023-10-02] MEDS: Metoclopramide 5 MG/ML VIAL (10 mg) IV PRN (17:05)
[2023-10-03 06:32] LABS: ABS Lymphocytes 1.7 10^3/uL (1.0-4.8); ABS Neutrophils 9.6 10^3/uL (1.5-7.6); Eosinophil % 0.1 %; Hematocrit 34.7 % (35-45); Hemoglobin 11.9 g/dL (11.5-14.3); Lymphocyte % 13.5 %; Mean Corpuscular Hemoglobin 30.8 pg (27-33); Mean Corpuscular Hgb Conc 34.5 g/dL (31-36); Mean Corpuscular Volume 89.3 fL (80-97); Platelet Count 245 10^3/uL (150-450); Red Blood Count 3.88 10^6/uL (3.63-4.92); Red Cell Distribution Width 13.5 % (12-17); White Blood Count 12.2 10^3/uL (3.8-11.8)
[2023-10-03 06:50] LABS: Calcium 8.4 mg/dL (8.6-10.3); Creatinine, Serum 0.8 mg/dL (0.51-0.95); Potassium 4.2 mmol/L (3.5-5.0); eGFR CKD-EPI 89.2 (>60)
[2023-10-03] MEDS: Enoxaparin 40 MG/0.4 ML SYR SUBCUT SCH (10:35)
[2023-10-03] MEDS: HYDROmorphone 0.5 MG/0.5 ML SYRINGE IV SLOW PU PRN (18:37)
[2023-10-03] MEDS: Ondansetron 4 mg VIAL 2 MG/ML 2 ml VIAL IV PRN (18:39)
[2023-10-04] MEDS: Lactated Ringers 1000 ml BAG 1,000 ML IV ONE (09:24)
[2023-10-04 09:28] LABS: ABS Eosinophils 0.1 10^3/uL (0.0-0.5); ABS Lymphocytes 0.7 10^3/uL (1.0-4.8); ABS Monocytes 0.7 10^3/uL (0.0-0.9); ABS Neutrophils 17.1 10^3/uL (1.5-7.6); Eosinophil % 0.7 %; Hematocrit 38.3 % (35-45); Hemoglobin 13.1 g/dL (11.5-14.3); Lymphocyte % 3.9 %; Mean Corpuscular Hemoglobin 30.8 pg (27-33); Mean Corpuscular Hgb Conc 34.1 g/dL (31-36); Mean Corpuscular Volume 90.3 fL (80-97); Mean Platelet Volume 8.2 fL (7.5-11.2); Platelet Count 255 10^3/uL (150-450); Red Blood Count 4.24 10^6/uL (3.63-4.92); Red Cell Distribution Width 13.5 % (12-17); White Blood Count 18.7 10^3/uL (3.8-11.8)
[2023-10-04 09:53] LABS: Calcium 8.9 mg/dL (8.6-10.3); Creatinine, Serum 1.48 mg/dL (0.51-0.95); Potassium 3.6 mmol/L (3.5-5.0); eGFR CKD-EPI 42.6 (>60)
[2023-10-04] MEDS: NS 0.9% 1000 ml BAG 1,000 ML IV ONE (10:24)
[2023-10-04] MEDS: metroNIDAZOLE IV 500 MG/100ML 500 MG/100 ML BAG IVPB SCH (13:25)
[2023-10-04] MEDS: cefTRIAXone 1 gm/50 mL D5W 1 GM/50 ML BAG IV SCH (14:16)
[2023-10-04] MEDS: Cefepime 2 GM in Dextrose 2 GM/50 ML BAG IV SCH (14:32)
[2023-10-04] MEDS: HYDROmorphone 0.5 MG/0.5 ML SYRINGE IV SLOW PU PRN (14:46)
[2023-10-05 06:47] LABS: ABS Basophils 0.1 10^3/uL (0.0-0.1); ABS Eosinophils 0.1 10^3/uL (0.0-0.5); ABS Lymphocytes 1.1 10^3/uL (1.0-4.8); ABS Monocytes 0.7 10^3/uL (0.0-0.9); ABS Neutrophils 15.1 10^3/uL (1.5-7.6); Eosinophil % 0.5 %; Hematocrit 34.2 % (35-45); Hemoglobin 11.6 g/dL (11.5-14.3); Lymphocyte % 6.6 %; Mean Corpuscular Hemoglobin 30.5 pg (27-33); Mean Corpuscular Hgb Conc 33.8 g/dL (31-36); Mean Corpuscular Volume 90.2 fL (80-97); Mean Platelet Volume 7.7 fL (7.5-11.2); Platelet Count 241 10^3/uL (150-450); Red Blood Count 3.79 10^6/uL (3.63-4.92); Red Cell Distribution Width 13.4 % (12-17); White Blood Count 17.1 10^3/uL (3.8-11.8)
[2023-10-05 07:30] LABS: Calcium 8.5 mg/dL (8.6-10.3); Creatinine, Serum 1.4 mg/dL (0.51-0.95); Potassium 3.5 mmol/L (3.5-5.0); eGFR CKD-EPI 45.5 (>60)
[2023-10-06 08:08] LABS: ABS Basophils 0.1 10^3/uL (0.0-0.1); ABS Eosinophils 0.1 10^3/uL (0.0-0.5); ABS Lymphocytes 0.8 10^3/uL (1.0-4.8); ABS Monocytes 0.7 10^3/uL (0.0-0.9); ABS Neutrophils 14.5 10^3/uL (1.5-7.6); Eosinophil % 0.8 %; Hematocrit 34.1 % (35-45); Hemoglobin 11.7 g/dL (11.5-14.3); Lymphocyte % 5.1 %; Mean Corpuscular Hgb Conc 34.5 g/dL (31-36); Mean Corpuscular Volume 89.9 fL (80-97); Mean Platelet Volume 7.8 fL (7.5-11.2); Platelet Count 279 10^3/uL (150-450); Red Blood Count 3.79 10^6/uL (3.63-4.92); Red Cell Distribution Width 13.8 % (12-17); White Blood Count 16.3 10^3/uL (3.8-11.8)
[2023-10-06] MEDS: Scopolamine 1 mg/72hr PATCH TRANSDERM SCH (08:23)
[2023-10-06 08:39] LABS: Calcium 8.6 mg/dL (8.6-10.3); Creatinine, Serum 1.41 mg/dL (0.51-0.95); Potassium 3.7 mmol/L (3.5-5.0); eGFR CKD-EPI 45.2 (>60)
[2023-10-06] MEDS: Lactated Ringers 1000 ml BAG 1,000 ML IV ONE (08:54)
[2023-10-06] MEDS: D5W 1/2 NS KCl 20 meq 1000 ml 1,000 ML IV SCH (10:06)
[2023-10-06] MEDS ORDERED: HYDROmorphone 0.5 MG/0.5 ML SYRINGE IV SLOW PU PRN (10:28)
[2023-10-06] MEDS: HYDROmorphone 1 MG/1 ML SYRINGE IV SLOW PU PRN (11:16)
[2023-10-06] MEDS ORDERED: Lidocaine 2% PF 5 ML VIAL ONE (14:53)
[2023-10-06] MEDS ORDERED: Propofol 10 MG/ML 20 ML BTL ONE (14:53)
[2023-10-06] MEDS ORDERED: fentaNYL 100 mcg/2 ml 50 MCG/ML VIAL ONE (14:53)
[2023-10-06] MEDS ORDERED: Iohexol 180 (CONTRAST) 10 ML SDV IV ONE (15:27)
[2023-10-06] MEDS ORDERED: Ondansetron 4 mg VIAL 2 MG/ML 2 ml VIAL ONE (16:04)
[2023-10-06] MEDS ORDERED: Dexamethasone IV 4 MG/ML VIAL 1 ml VIAL ONE (16:04)
[2023-10-06] MEDS ORDERED: Naloxone 0.4 mg VIAL 0.4 mg/ml 1 ml VIAL IV PRN (16:08)
[2023-10-06] MEDS ORDERED: HYDROmorphone 1 MG/1 ML SYRINGE IV PRN (16:08)
[2023-10-07 05:45] LABS: ABS Lymphocytes 0.8 10^3/uL (1.0-4.8); ABS Monocytes 0.5 10^3/uL (0.0-0.9); ABS Neutrophils 8.8 10^3/uL (1.5-7.6); Eosinophil % 0.1 %; Hematocrit 31.8 % (35-45); Lymphocyte % 7.6 %; Mean Corpuscular Hgb Conc 34.6 g/dL (31-36); Mean Corpuscular Volume 89.6 fL (80-97); Mean Platelet Volume 7.6 fL (7.5-11.2); Platelet Count 303 10^3/uL (150-450); Red Blood Count 3.55 10^6/uL (3.63-4.92); Red Cell Distribution Width 13.4 % (12-17); White Blood Count 10.2 10^3/uL (3.8-11.8)
[2023-10-07 06:24] LABS: Calcium 8.3 mg/dL (8.6-10.3); Creatinine, Serum 0.75 mg/dL (0.51-0.95); Potassium 4.4 mmol/L (3.5-5.0); eGFR CKD-EPI 96.3 (>60)
[2023-10-07 10:04] VITALS: BP 123/89
== END 2023-10-07 11:40 | disposition home or self-care (01) | DRG 221 ==
LOC: AA 10:16 → EDSTATUS 12:00 → SSU 18:18
PROVIDERS: ADMIT Surgery; ATTEND Surgery